=== PATIENT | female | born 1965 | race Caucasian/White ===

== ENCOUNTER → 2016-06-21 | Outpatient (CLI) | payer OTHER | LOC: MAMO 11:20 | DX: Z12.31 Encounter for screening mammogram for malignant neoplasm of breast (principal) | CPT/HCPCS: G0202 ==

== ENCOUNTER → 2016-07-02 | Outpatient (CLI) | payer OTHER | LOC: HEART 5 09:02 | DX: R06.02 Shortness of breath (principal); J44.9 Chronic obstructive pulmonary disease, unspecified | CPT/HCPCS: 94010 ==

== ENCOUNTER → 2016-07-13 | Outpatient (CLI) | payer OTHER | LOC: HEART 5 08:56 | DX: R94.31 Abnormal electrocardiogram [ECG] [EKG] (principal); R07.9 Chest pain, unspecified; I08.1 Rheumatic disorders of both mitral and tricuspid valves | CPT/HCPCS: 78452; 93306; A9502; J2785 ==

== ENCOUNTER 2016-08-27 21:39 | Emergency (ER) | payer OTHER | END 2016-08-27 23:30 | disposition home or self-care (01) | LOC: ER1 21:39 | DX: R00.0 Tachycardia, unspecified (principal); R03.0 Elevated blood-pressure reading, without diagnosis of hypertension; Z53.21 Procedure and treatment not carried out due to patient leaving prior to being seen by health care provider | CPT/HCPCS: 93005 ==

== ENCOUNTER → 2016-11-18 | Outpatient (CLI) | payer OTHER | LOC: CARD REHAB 15:30 | DX: Z48.812 Encounter for surgical aftercare following surgery on the circulatory system (principal); Z95.1 Presence of aortocoronary bypass graft ==

== ENCOUNTER 2020-11-25 23:30 | Emergency (ER) | payer OTHER ==
[~2020-11-25 23:30] MED LIST: ALPRAZOLAM0.5 MG PO; ASPIRIN 325MG325 MG PO; CYCLOBENZAPRINE10 MG PO; GLUCOPHAGE500 MG PO; LIPITOR40 MG PO; LYRICA150 MG PO; NITROSTAT0.4 MG SL; PRINIVIL20 MG PO; PROTONIX40 MG PO; TRAMADOL HCL50 MG PO; ZEBETA 5 MG TAB5 MG PO; ZETIA 10 MG TAB10 MG PO
[2020-11-25 23:54] LABS: HEMOGLOBIN 14.3 gm/dl (12.3-15.3); RED BLOOD COUNT 4.89 M/UL (4.00-5.10); WHITE BLOOD COUNT 12.5 K/UL (4.5-11.0)
[2020-11-26 00:15] LABS: BUN/CREATININE RATIO 21 (0-10)
== END 2020-11-26 08:07 | disposition home or self-care (01) ==
LOC: ER1 23:30
PROVIDERS: Physician Assistant
DX: R07.89 Other chest pain (principal); R55 Syncope and collapse; E87.6 Hypokalemia; R79.1 Abnormal coagulation profile
CPT/HCPCS: 71045; 80053; 82550; 82553; 83874; 84484; 85025; 85379; 93005; 99285; Q9967